=== PATIENT | female | born 1970 | race Caucasian/White ===

== ENCOUNTER 2018-08-10 12:41 | Emergency (ER) | payer OTHER ==
[2018-08-10 12:48] VITALS: BP 162/102; TEMP 99.4; BMI 333.6
[2018-08-10] MEDS ORDERED: VISTARIL INJ IM STA (14:17)
--- NOTE | 2018-08-10 14:24 | ED.PDOC ---
General ED Provider: Dr. MANDY JACINTO Chief Complaint: Rash Stated Complaint: Onset 2 weeks ago. Progressively worsened to involve chest wall and upper lower extremities Time Seen by Physician: 12:50 Mode of Arrival: Walk-In Information Source: Patient Exam Limitations: Clinical condition Primary Care Provider: ELENA PHILIPPE Nursing and Triage Documentation Reviewed and Agree: Yes Does patient meet sepsis criteria?: No System Inflammatory Response Syndrome: Not Applicable Sepsis Protocol: For patient's 13 years and over: Temp is 96.8 and below OR 101 and greater Pulse >90 BPM Resp >20/minute Acutely Altered Mental Status Are patient's symptoms suggestive of a new infection, such as: -Pneumonia -Skin, Soft Tissue -Endocarditis -UTI -Bone, Joint Infection -Implantable Device -Acute Abdominal Infection -Wound Infection -Meningitis -Blood Stream Catheter Infection -Unknown Review of Systems - Review Of Systems Constitutional: Reports: No symptoms Eyes: Reports: No symptoms Ears, Nose, Mouth, Throat: Reports: No symptoms Respiratory: Reports: No symptoms Cardiac: Reports: No symptoms GI: Reports: No symptoms : Reports: No symptoms Musculoskeletal: Reports: No symptoms, Joint pain, Joint swelling Skin: Reports: No symptoms, Rash Neurological: Reports: No symptoms Endocrine: Reports: No symptoms Hematologic/Lymphatic: Reports: No symptoms All Other Systems: Reviewed and Negative Past Medical History - Past Medical History Endocrine: Reports: None Cardiovascular: Reports: None Respiratory: Reports: None Hematological: Reports: None Gastrointestinal: Reports: None Genitourinary: Reports: None Neuro/Psych: Reports: None Musculoskeletal: Reports: Arthritis, Back Pain, Joint Pain Cancer: Reports: None Last Menstrual Period: na Other Pertinent Past Medical History: Obesity - Surgical History General Surgical History: Reports: Cholecystectomy, Other (TUMOR REMOVED FROM STOMACH) - Family History Family History: Reports: None - Social History Smoking Status: Current every day smoker Hx Substance Use: No Alcohol Screening: None - Immunizations Tetanus Shot up to Date: No Physical Exam - Physical Exam Appearance: Ill-appearing, No pain distress, Well-nourished, Obese Ill-appearing: Mild Pain Distress: Mild Eyes: ZORAIDA, EOMI, Conjunctiva clear ENT: Ears normal, Nose normal, Oropharynx normal Neck: Supple Respiratory: Airway patent, Breath sounds clear, Breath sounds equal, Respirations nonlabored Cardiovascular: RRR, Pulses normal, No rub, No murmur GI/: Soft, Nontender, No masses, Bowel sounds normal, No Organomegaly Musculoskeletal: Normal strength, ROM intact, No edema, No calf tenderness Skin: Warm (Diffuse rash about torso, extremities, erythermatous), Dry, Normal color Neurological: Sensation intact, Motor intact, Reflexes intact, Cranial nerves intact, Alert, Oriented Psychiatric: Affect appropriate, Mood appropriate Re-Evaluation - Re-Evaluation Time of Re-Evaluation: 18:30 Status: Improved Vital Signs Stable: Yes Appearance: NAD Lungs: Clear Skin: Warm and Dry Neuro: Alert and Oriented X3 CV: RRR Critical Care Note - Critical Care Note Total Time (mins): 60 Course - Course Hematology/Chemistry: 08/10/18 14:30 08/10/18 14:30 Orders, Labs, Meds: Lab Review 08/10/18 08/10/18 08/10/18 14:30 14:30 14:30 WBC 7.72 RBC 4.86 Hgb 14.9 Hct 45.3 MCV 93.2 MCH 30.7 MCHC 32.9 RDW Coeff of Heather 14.2 Plt Count 285 Immature Gran % (Auto) 0.1 Neut % (Auto) 61.7 Lymph % (Auto) 26.8 Potter % (Auto) 6.5 Eos % (Auto) 4.4 Baso % (Auto) 0.5 Immature Gran # (Auto) 0.0 Neut # (Auto) 4.8 Lymph # (Auto) 2.1 Potter # (Auto) 0.5 Eos # (Auto) 0.3 Baso # (Auto) 0.0 ESR 23 H Sodium 141.7 Potassium 4.36 Chloride 103.3 Carbon Dioxide 29.2 Anion Gap 13.56 BUN 5.1 L Creatinine 0.68 Estimated GFR (MDRD) 92.00 BUN/Creatinine Ratio 7.50 Glucose 95.1 Calcium 9.55 Total Bilirubin 0.40 AST 25.0 ALT 15.8 Alkaline Phosphatase 91.4 Total Protein 8.70 H Albumin 4.67 Globulin 4.03 Albumin/Globulin Ratio 1.15 Influ A Molecular Assay Influ B Molecular Assay 08/10/18 15:31 WBC RBC Hgb Hct MCV MCH MCHC RDW Coeff of Heather Plt Count Immature Gran % (Auto) Neut % (Auto) Lymph % (Auto) Potter % (Auto) Eos % (Auto) Baso % (Auto) Immature Gran # (Auto) Neut # (Auto) Lymph # (Auto) Potter # (Auto) Eos # (Auto) Baso # (Auto) ESR Sodium Potassium Chloride Carbon Dioxide Anion Gap BUN Creatinine Estimated GFR (MDRD) BUN/Creatinine Ratio Glucose Calcium Total Bilirubin AST ALT Alkaline Phosphatase Total Protein Albumin Globulin Albumin/Globulin Ratio Influ A Molecular Assay Negative by naat Influ B Molecular Assay Negative by naat Orders Category Date Time Status CBC W/ AUTO DIFF Stat LAB 08/10/18 14:30 Completed CMP [COMPREHENSIVE METABOLIC PANEL] Stat LAB 08/10/18 14:30 Completed ESR Stat LAB 08/10/18 14:30 Completed FLU A & B MOLECULAR [FLU A/B MOLECULAR] Stat LAB 08/10/18 15:31 Completed RAPID STREP SCREEN [MOLECULAR GROUP A STREP] Stat LAB 08/10/18 15:31 Completed Dexamethasone 4 mg/ml Inj [Decadron 4 mg/ml Sdv] MEDS 08/10/18 15:20 Discontinued 4 mg IM ONCE STA Diphenhydramine Inj [Benadryl] MEDS 08/10/18 15:13 Discontinued 50 mg IM ONCE STA Hydroxyzine HCl [Vistaril Inj] MEDS 08/10/18 14:30 Discontinued 25 mg IM .STK-MED ONE Hydroxyzine HCl [Vistaril Inj] MEDS 08/10/18 14:17 Discontinued 50 mg IM ONCE STA CHEST, 1V AP ONLY Stat RADS 08/10/18 14:19 Completed Medications Discontinued Medications Generic Name Dose Route Start Last Admin Trade Name Freq PRN Reason Stop Dose Admin Dexamethasone Sodium Phosphate 4 mg 08/10/18 15:20 08/10/18 15:38 Decadron 4 Mg/Ml Sdv IM 08/10/18 15:21 4 mg ONCE STA Administration Diphenhydramine HCl 50 mg 08/10/18 15:13 08/10/18 15:39 Benadryl IM 08/10/18 15:14 50 mg ONCE STA Administration Hydroxyzine HCl 50 mg 08/10/18 14:17 08/10/18 14:40 Vistaril Inj IM 08/10/18 14:18 50 mg ONCE STA Administration Vital Signs: Temp Pulse Resp BP Pulse Ox 08/10/18 12:43 99.4 F 113 H 16 162/102 H 97 Departure - Departure Time of Disposition: 19:15 Disposition: HOME SELF-CARE Discharge Problem: Rash and other nonspecific skin eruption Instructions: Dermatitis (ED) Condition: Fair Pt referred to PMD for follow-up: Yes (Dermatology Address: [address] [place] [address]) IPMP verified?: No Additional Instructions: Alveeno Anti Itch Lotion apply to affected areas for relief of itching Vasolene lotion with cocoa butter apply daily Take meds Obtain zyrtec 10 mg daily Obtain apt with [employer] [facility] Address: [address] [place] [address] Phone: Allergies/Adverse Reactions: Allergies No Known Allergies Allergy (Unverified 03/15/15 09:49) Home Medications: Ambulatory Orders Hydroxyzine HCl 1 - 2 tab PO QID PRN #40 tablet 08/10/18 Prednisone 10 mg PO DAILY #20 tablet 08/10/18 Disposition Discussed With: Patient, Family
[2018-08-10] MEDS ORDERED: VISTARIL INJ IM ONE (14:30)
--- NOTE | 2018-08-10 14:59 | DI ---
EXAM: CHEST FRONTAL VIEW HISTORY: Rash, congestion. COMPARISON: 03/19/2009 FINDINGS: Heart size and mediastinum remain within normal limits. Lungs are free of infiltrate. No consolidation or pleural fluid. There is no pneumothorax or acute bony finding. IMPRESSION: No acute cardiopulmonary process.
[2018-08-10] MEDS ORDERED: BENADRYL IM STA (15:13)
[2018-08-10] MEDS ORDERED: ATIVAN IM STA (15:18)
[2018-08-10] MEDS ORDERED: DECADRON 4 MG/ML SDV IM STA (15:20)
== END 2018-08-10 19:28 | disposition home or self-care (01) ==
LOC: ED 12:41
DX: R21 Rash and other nonspecific skin eruption (principal); F17.210 Nicotine dependence, cigarettes, uncomplicated
CPT/HCPCS: 36415; 80053; 85025; 85651; 87502; 87651; 96372; 99283